=== PATIENT | male | born 1965 | race Caucasian/White ===

== ENCOUNTER 2022-05-28 03:34 | Emergency (ER) | payer MEDICARE, OTHER ==
[2022-05-28 03:54] VITALS: TEMP 97.7
[2022-05-28] MEDS ORDERED: TOPICAL SKIN ADHESIVE 1 EACH AMP TOPICAL ONE (04:47)
[2022-05-28] MEDS ORDERED: DIPH,PERTUS(ACELL)TETVAC-LF 0.5 ML VIAL IM ONE (04:50)
--- NOTE | 2022-05-28 04:54 | ED ---
General Adult HPI - General Chief complaint: Head Injury Stated complaint: Fall, Chin Laceration Time Seen by Provider: 05/28/22 04:43 Source: patient, family Mode of arrival: ambulatory Limitations: no limitations - History of Present Illness Initial comments: This patient's 56-year-old man brought from [facility] home to have evaluation after he had a ground-level fall. The patient had attempted to get out of bed and then fell and struck his face against furniture. When I interview the patient he denies any complaints. He is not having pain. He is only concerned about having some bleeding from the laceration. -: hour(s) - Related Data Allergies Allergy/AdvReac Type Severity Reaction Status Date / Time No Known Allergies Allergy Verified 05/28/22 03:54 Review of Systems ROS Statement: Those systems with pertinent positive or pertinent negative responses have been documented in the HPI. ROS Other: All systems not noted in ROS Statement are negative. Constitutional: Denies: fever Respiratory: Denies: dyspnea Cardiovascular: Denies: chest pain Gastrointestinal: Denies: abdominal pain Neurological: Denies: headache, weakness, numbness, confusion Past Medical History Past Medical History: Heart Failure, COPD History of Any Multi-Drug Resistant Organisms: None Reported Past Surgical History: Tonsillectomy Past Psychological History: No Psychological Hx Reported Smoking Status: Current every day smoker Past Alcohol Use History: None Reported Past Drug Use History: None Reported General Exam Limitations: no limitations General appearance: alert, in no apparent distress Head exam: Present: atraumatic, normocephalic Eye exam: Present: normal appearance, PERRL, EOMI. Absent: scleral icterus, conjunctival injection Neck exam: Present: normal inspection, full ROM. Absent: tenderness, meningismus Respiratory exam: Present: normal lung sounds bilaterally. Absent: respiratory distress, wheezes, rales, rhonchi, stridor, chest wall tenderness Cardiovascular Exam: Present: regular rate, normal rhythm, normal heart sounds GI/Abdominal exam: Present: soft. Absent: distended, tenderness, guarding Extremities exam: Present: normal inspection, full ROM, normal capillary refill. Absent: tenderness Back exam: Present: normal inspection. Absent: vertebral tenderness Neurological exam: Present: alert Skin exam: Present: warm, dry, normal color, other (There is an approximately 2.5 cm curvilinear laceration to the pre-mental area) Course Vital Signs 05/28/22 05/28/22 03:45 05:22 Temperature 97.7 F Pulse Rate 96 82 Respiratory 20 16 Rate Blood Pressure 137/83 133/89 O2 Sat by Pulse 97 95 Oximetry Procedures - Laceration Laceration #1 Consent Obtained: verbal consent Indication: laceration Site: face Size (cm): 3 Description: linear Type of Sutures: other (Skin adhesive) Patient Tolerated Procedure: well, no complications Disposition Clinical Impression: Laceration Disposition: HOME SELF-CARE Condition: Good Instructions (If sedation given, give patient instructions): Laceration (DC) Is patient prescribed a controlled substance at d/c from ED?: No Referrals: None,Stated [Primary Care Provider] - 1-2 days
[2022-05-28 05:24] VITALS: BP 133/89; PULSE 82; RESP 16
== END 2022-05-28 06:02 | disposition home or self-care (01) ==
LOC: EEVIPCON 03:34 → EC 03:34
DX: S01.419A Laceration without foreign body of unspecified cheek and temporomandibular area, initial encounter (principal); Z23 Encounter for immunization; I50.9 Heart failure, unspecified; J44.9 Chronic obstructive pulmonary disease, unspecified; F17.200 Nicotine dependence, unspecified, uncomplicated; W06.XXXA Fall from bed, initial encounter; W22.8XXA Striking against or struck by other objects, initial encounter
CPT/HCPCS: 12013; 90471; 90715; 99283

== ENCOUNTER 2024-04-27 15:53 | Emergency (ER) | payer MEDICARE, OTHER ==
[2024-04-27 17:21] LABS: Appearance,Urine Clear (Clear); Bilirubin,Urine Negative (Negative); Blood,Urine Negative (Negative); Color,Urine Light Yellow; Glucose,Urine (UA) Negative (Negative); Ketones,Urine Negative (Negative); Leukocyte Esterase,Urine Negative (Negative); Nitrite,Urine Negative (Negative); PH, Urine 6.5 (5.0-8.0); Protein,Urine Negative (Negative); Specific Gravity,Urine 1.007 (1.001-1.035); Urobilinogen,Urine <2.0 mg/dL (<2.0)
[2024-04-27 17:39] LABS: Amphetamine Screen,Urine Not Detected (NotDetected); Barbiturate Screen,Urine Not Detected (NotDetected); Benzodiazepines Screen,Urine Not Detected (NotDetected); Cocaine Screen,Urine Not Detected (NotDetected); Methadone Screen, Urine Not Detected (NotDetected); Opiate Screen,Urine Not Detected (NotDetected); Oxycodone Screen, Urine Not Detected (NotDetected); Phencyclidine Screen,Urine Not Detected (NotDetected); Tricyclic Antidepressant,Urine Detected (NotDetected); Urn Cannabinoid Scrn Not Detected (NotDetected)
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
[2024-04-27 18:26] LABS: Basophils % (A) 0 %; Eosinophils % (A) 1 %; HCT 47.1 % (39.0-53.0); HGB 15.3 gm/dL (13.0-17.5); Lymphocytes # (A) 1.1 k/uL (1.0-4.8); Lymphocytes % (A) 13 %; MCH 31.7 pg (25.0-35.0); MCHC 32.6 g/dL (31.0-37.0); MCV 97.4 fL (80.0-100.0); Mean Platelet Volume 8.5; Monocytes # (A) 0.6 k/uL (0-1.0); Monocytes % (A) 7 %; Neutrophils # (A) 6.3 k/uL (1.3-7.7); Neutrophils % (A) 77 %; Platelet Count 197 k/uL (150-450); RBC 4.83 m/uL (4.30-5.90); RDW 14.3 % (11.5-15.5); WBC 8.1 k/uL (3.8-10.6)
[2024-04-27 18:56] LABS: ALT 15 U/L (4-49); AST 32 U/L (17-59); African American GFR (CKD) >90 (>60 ml/min/1.73 sqM); Albumin 4.2 g/dL (3.5-5.0); Alkaline Phosphatase 102 U/L (38-126); Anion Gap 3 mmol/L; Blood Urea Nitrogen 5 mg/dL (9-20); Calcium 9.1 mg/dL (8.4-10.2); Carbon Dioxide 32 mmol/L (22-30); Chloride 97 mmol/L (98-107); Glucose 107 mg/dL (74-99); Non-African American GFR(CKD) >90 (>60 ml/min/1.73 sqM); Potassium 3.9 mmol/L (3.5-5.1); Sodium 132 mmol/L (137-145); Total Bilirubin 0.9 mg/dL (0.2-1.3)
--- NOTE | 2024-04-27 21:36 | CT ---
EXAMINATION TYPE: CT brain wo con DATE OF EXAM: 04/27/2024 HISTORY: AMS CT DLP: 1297.4 mGycm. Automated Exposure Control for Dose Reduction was Utilized. TECHNIQUE: CT scan of the head is performed without contrast. COMPARISON: None. FINDINGS: There is no acute intracranial hemorrhage or midline shift identified. Ventricles and sul ci within normal limits in size for patient's age. 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 Persistent anterior metopic suture which is normal variant The globes are intact and the visualized sinuses are clear. Soft tissue density consistent with ce rumen in bilateral external auditory canals greater on the left is present. IMPRESSION: No acute intracranial hemorrhage or midline shift. 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
[2024-04-28] MEDS: QUEtiapine 200 MG TAB PO STA (01:16)
[2024-04-28] MEDS: LORazepam 1 MG TAB PO STA (05:59)
[2024-04-28] MEDS ORDERED: ZIPRASIDONE 20 MG VIAL IM PRN (06:35)
[2024-04-28 18:52] VITALS: BP 129/78; PULSE 103; RESP 16; TEMP 97.5
== END 2024-04-28 20:01 ==
LOC: EC 15:53
DX: G89.29 Other chronic pain (principal); F20.9 Schizophrenia, unspecified; F17.200 Nicotine dependence, unspecified, uncomplicated
CPT/HCPCS: 36415; 70450; 80053; 80306; 81003; 82075; 85025; 87635; 99285

== ENCOUNTER → 2024-04-27 | Emergency (ER) | payer MEDICARE, OTHER | LOC: EC 15:41 | DX: Z53.9 Procedure and treatment not carried out, unspecified reason (principal) ==